=== PATIENT | male | born 1960 | race African-American/Black ===

== ENCOUNTER 2019-05-10 11:43 | Emergency (ER) | payer OTHER, SELFPAY ==
[2019-05-10] MEDS ORDERED: Lidocaine 1% (PF) 30 ML VIAL ONE (12:06)
[2019-05-10] MEDS ORDERED: Bacitracin 1 PK ONE (12:45)
== END 2019-05-10 12:55 | disposition home or self-care (01) ==
LOC: NAV ERS 11:43
DX: S61.210A Laceration without foreign body of right index finger without damage to nail, initial encounter (principal); S61.212A Laceration without foreign body of right middle finger without damage to nail, initial encounter; E11.9 Type 2 diabetes mellitus without complications; E78.5 Hyperlipidemia, unspecified; E78.00 Pure hypercholesterolemia, unspecified; I10 Essential (primary) hypertension; Z87.891 Personal history of nicotine dependence; Z79.84 Long term (current) use of oral hypoglycemic drugs; Z79.899 Other long term (current) drug therapy; W27.0XXA Contact with workbench tool, initial encounter
CPT/HCPCS: 12001; J2001

== ENCOUNTER 2019-10-21 21:33 | Emergency (ER) | payer OTHER, SELFPAY ==
[~2019-10-21 21:33] MED LIST: Iopamidol 370 76% 100 ML VIAL ONE
[2019-10-21] MEDS ORDERED: Pantoprazole 40 MG VIAL ONE (22:11)
[2019-10-21] MEDS ORDERED: Sodium Chloride 0.9% 1,000 ML ONE (22:11)
[2019-10-21] MEDS ORDERED: Ondansetron PF 4 MG/2 ML Vial ONE ×2 (22:11→23:57)
[2019-10-21] MEDS ORDERED: Mag-Al Plus 1200 MG/1200 MG/120 MG/30 ML UDCUP ONE (22:29)
[2019-10-21] MEDS ORDERED: Lidocaine Viscous Sol 2% 15 ml UD Cup ONE (22:29)
[2019-10-21 22:30] LABS: Hemoglobin 15.7 g/dL (14.0-18.0); Manual Diff?? NO; Mean Corpuscular HGB CONC 31.6 g/dL (32.0-36.0); Mean Corpuscular Hemoglobin 27.9 pg (27.0-31.0); Mean Corpuscular Volume 88.6 fL (78.0-98.0); Mean Platelet Volume 13.1 fL (7.4-10.4); Platelet Count 171 thou/uL (130-400); RBC Distribution Width 11.8 % (11.5-14.5); Red Blood Cell (RBC) Count 5.62 mill/uL (4.70-6.10); White Blood Cell (WBC) Count 10.4 thou/uL (4.8-10.8)
[2019-10-21 22:31] LABS: #Lymphocytes 1.2 thou/uL (1.20-3.40); #Monocytes 0.5 thou/uL (0.11-0.59); #Neutrophils 8.6 thou/uL (1.40-6.50); %Basophils 0.4 % (0.0-1.0); %Eosinophils 0.1 % (0.0-10.0); %Lymphocytes 11.9 % (21.0-51.0); %Monocytes 5.1 % (0.0-10.0); %Neutrophils 82.6 % (42.0-75.0)
[2019-10-21 22:46] LABS: ALT (SGPT) 28 U/L (8-55); AST (SGOT) 18 U/L (5-34); Albumin 4.5 g/dL (3.5-5.0); Alkaline Phosphatase 94 U/L (40-110); Anion Gap 16 mmol/L (10-20); BUN (Urea Nitrogen) 15 mg/dL (8.4-25.7); Bilirubin, Total 0.7 mg/dL (0.2-1.2); CK (CPK) 203 U/L (30-200); Calc. Creatinine Clearance 0 mL/min (70-130); Calcium 9.8 mg/dL (7.8-10.44); Carbon Dioxide 24 mmol/L (22-29); Chloride 102 mmol/L (98-107); Estimated GFR-MDRD 65; Globulin 3.2 g/dL (2.4-3.5); Glucose 211 mg/dL (70-105); Lipase 22 U/L (8-78); Potassium 4.1 mmol/L (3.5-5.1); Protein, Total 7.7 g/dL (6.0-8.3); Sodium 138 mmol/L (136-145)
[2019-10-21 23:03] LABS: CKMB 0.7 ng/mL (0-6.6)
[2019-10-22] MEDS ORDERED: Promethazine HCl 25 MG/ML VIAL ONE (01:49)
--- NOTE | 2019-10-22 07:31 | CT ---
PRELIMINARY REPORT/[facility]/EMERGENCY AFTER HOURS PROCEDURE: EXAM: CT Abdomen and Pelvis with Intravenous Contrast CLINICAL HISTORY: History of gastric ulcers who presents with a one-week of abdominal pain concentrat ed in his right periumbilical area. Patient reports that 3 days ago he started vomiting. He vomited 3 times the first day. The second day and today he vomited more than 8 times each day. Patient report s he is unable to keep any food or liquids down. No bright red blood in the vomitus though the last time he vomited there was some small bits of particulate matter that he thought might be dried blood. PT RPEORTS HAVING GASTRIC ULCERS SINCE 2001 TECHNIQUE: Axial computed tomography images of the abdomen and pelvis with intravenous contrast. CONTRAST: With; 96ml ISOVUE 370 COMPARISON: None provided. FINDINGS: LUNG BASES: No basilar airspace consolidation or pleural effusion. Mild cardiomegaly. Coronary pia ry disease. Bibasilar subsegmental atelectasis or parenchymal scarring. LIVER: Unremarkable. GALLBLADDER AND BILE DUCTS: Unremarkable. No calcified stone. No ductal dilation. PANCREAS: Unremarkable. SPLEEN: Unremarkable. ADRENAL GLANDS: Unremarkable. KIDNEYS, URETERS, AND BLADDER: Unremarkable. No hydronephrosis or nephrolithiasis. No ureteral or myriam dder calculi. STOMACH AND BOWEL: No obstruction. No wall thickening. No CT evidence of colitis or acute diverticuli tis. Colonic diverticulosis. APPENDIX: No CT evidence for appendicitis. PERITONEUM: No free fluid. No free air. LYMPH NODES: No lymphadenopathy. REPRODUCTIVE: Unremarkable as visualized. VASCULATURE: No aortic aneurysm. BONES: No fracture or suspicious osseous abnormality. Multilevel degenerative disc disease. ABDOMINAL WALL AND SOFT TISSUES: Unremarkable. IMPRESSION: No acute intra-abdominal or pelvic abnormality. Colonic diverticulosis with no evidence o f diverticulitis. Mild cardiomegaly with coronary artery disease. ELECTRONICALLY SIGNED BY: Kamlesh Jimenes MD Oct 22, 2019 12:49:15 AM CDT FINAL REPORT: CT ABDOMEN AND PELVIS WITH CONTRAST: History: Abdominal pain. Comparison: None.. Findings: Lung bases are clear. No pericardial effusion. No hydroureteronephrosis. Moderate diverticular diseas e of the sigmoid colon without active inflammation. Appendix is normal. Impression: Concordant with the preliminary report. Transcribed Date/Time: 10/22/2019 7:49 AM
== END 2019-10-22 08:30 ==
LOC: NAV ERS 21:33
DX: R11.2 Nausea with vomiting, unspecified (principal); R10.33 Periumbilical pain; R63.0 Anorexia; E78.00 Pure hypercholesterolemia, unspecified; E11.9 Type 2 diabetes mellitus without complications; E78.5 Hyperlipidemia, unspecified; I10 Essential (primary) hypertension; Z87.891 Personal history of nicotine dependence; Z79.84 Long term (current) use of oral hypoglycemic drugs; Z79.899 Other long term (current) drug therapy
CPT/HCPCS: 74177; 80053; 82550; 82553; 83690; 84484; 85025; 93005; 96361; 96365; 96366; 96375; 96376; C9113; J2405; J2550; J7050; Q9967

== ENCOUNTER 2021-04-07 07:25 | Emergency (ER) | payer OTHER ==
[2021-04-07] MEDS ORDERED: Bacitracin 1 PK ONE (07:50)
== END 2021-04-07 08:10 | disposition home or self-care (01) ==
LOC: NAV ERS 07:25
DX: S61.213A Laceration without foreign body of left middle finger without damage to nail, initial encounter (principal); E11.9 Type 2 diabetes mellitus without complications; E78.5 Hyperlipidemia, unspecified; E78.00 Pure hypercholesterolemia, unspecified; I10 Essential (primary) hypertension; I25.10 Atherosclerotic heart disease of native coronary artery without angina pectoris; I25.2 Old myocardial infarction; Z87.891 Personal history of nicotine dependence; Z79.899 Other long term (current) drug therapy; Z79.84 Long term (current) use of oral hypoglycemic drugs; Z79.82 Long term (current) use of aspirin; W31.2XXA Contact with powered woodworking and forming machines, initial encounter; Y99.0 Civilian activity done for income or pay
CPT/HCPCS: 99282

== ENCOUNTER 2021-04-22 22:44 | Emergency (ER) | payer OTHER ==
[2021-04-22] MEDS ORDERED: Ondansetron PF 4 MG/2 ML Vial ONE (23:17)
[2021-04-22] MEDS ORDERED: Pantoprazole 40 MG VIAL ONE (23:17)
[2021-04-22] MEDS ORDERED: Sodium Chloride 0.9% 1,000 ML ONE (23:17)
[2021-04-22] MEDS ORDERED: Sucralfate 1 GM TAB ONE (23:17)
[2021-04-22 23:24] LABS: #Basophils 0.1 thou/uL (0.0-0.2); #Lymphocytes 1.2 thou/uL (1.20-3.40); #Monocytes 0.6 thou/uL (0.11-0.59); #Neutrophils 4.9 thou/uL (1.40-6.50); %Basophils 0.8 % (0.0-1.0); %Eosinophils 0.3 % (0.0-10.0); %Lymphocytes 17.7 % (21.0-51.0); %Monocytes 8.3 % (0.0-10.0); %Neutrophils 72.9 % (42.0-75.0); Hemoglobin 15.2 g/dL (14.0-18.0); Mean Corpuscular HGB CONC 31.7 g/dL (32.0-36.0); Mean Corpuscular Hemoglobin 27.8 pg (27.0-31.0); Mean Corpuscular Volume 87.5 fL (78.0-98.0); Platelet Count 168 thou/uL (130-400); RBC Distribution Width 13.3 % (11.5-14.5); Red Blood Cell (RBC) Count 5.49 mill/uL (4.70-6.10); White Blood Cell (WBC) Count 6.7 thou/uL (4.8-10.8)
[2021-04-22 23:41] LABS: ALT (SGPT) 15 U/L (8-55); AST (SGOT) 12 U/L (5-34); Albumin 4.1 g/dL (3.4-4.8); Alkaline Phosphatase 78 U/L (40-110); Anion Gap 15 mmol/L (10-20); BUN (Urea Nitrogen) 13 mg/dL (8.4-25.7); Bilirubin, Total 0.9 mg/dL (0.2-1.2); Calc. Creatinine Clearance 0 mL/min (70-130); Calcium 9.3 mg/dL (7.8-10.44); Carbon Dioxide 25 mmol/L (23-31); Chloride 101 mmol/L (98-107); Globulin 3.1 g/dL (2.4-3.5); Glucose 182 mg/dL (80-115); Lipase 32 U/L (8-78); Potassium 4.2 mmol/L (3.5-5.1); Protein, Total 7.2 g/dL (5.8-8.1); Sodium 137 mmol/L (136-145)
[2021-04-23] MEDS ORDERED: Metoclopramide HCl 10 MG/2 ML VIAL ONE (00:25)
[2021-04-23 00:31] LABS: Bilirubin Negative (Negative); Blood, Urine Negative (Negative); Clarity Clear (Clear); Glucose, Urine (Dipstick) Negative (Negative); Ketone, Urine Negative (Negative); Leukocyte Negative (Negative); Nitrite Negative (Negative); Protein, Urine (Dipstick) 30 mg/dL (Neg-Trace); Specific Gravity, Urine 1.025 (1.005-1.030)
[2021-04-23 00:34] LABS: Mucous/LPF 1+ LPF (<2+); RBC/HPF 0-3 HPF (0-3); Squamous Epithelial None Seen HPF (0-3); WBC/HPF 0-3 HPF (0-3)
[2021-04-23] MEDS ORDERED: Sodium Chloride 0.9% 1,000 ML ONE (00:50)
[2021-04-23] MEDS ORDERED: Metoprolol Tartrate 25 MG TAB ONE (01:08)
[2021-04-23] MEDS ORDERED: Metoprolol Tartrate 50 MG TAB ONE (01:20)
== END 2021-04-23 02:06 | disposition home or self-care (01) ==
LOC: NAV ERS 22:44
DX: R11.2 Nausea with vomiting, unspecified (principal); R00.1 Bradycardia, unspecified; I10 Essential (primary) hypertension; E11.9 Type 2 diabetes mellitus without complications; E78.5 Hyperlipidemia, unspecified; E78.00 Pure hypercholesterolemia, unspecified; I25.10 Atherosclerotic heart disease of native coronary artery without angina pectoris; I25.2 Old myocardial infarction; Z87.891 Personal history of nicotine dependence; Z79.82 Long term (current) use of aspirin; Z79.84 Long term (current) use of oral hypoglycemic drugs; Z79.899 Other long term (current) drug therapy
CPT/HCPCS: 80053; 81003; 81015; 83690; 84484; 85025; 93005; 96374; 96375; C9113; J2405; J2765; J7050